=== PATIENT | male | born 1940 | race Caucasian/White ===

== ENCOUNTER → 2017-09-17 | Outpatient (CLI) | payer MEDICARE ==
[~2017-09-17] MED LIST: ALLO100T PO; ASPI-146 PO; BUSP10TA PO; CELE200C PO; COMMODE 3-IN-11 MIS; ENOX40IN SQ; ESOM1CAP16 PO; EZET10 PO; FOLI800T PO; GABA300C5 PO; HYDR-3580 PO; METH0.4I2 IM; METO25TA3 PO; SULF500T3 PO; TEMA30CA PO; TRAM50TA PO; WALKER WHEELS/F1 MIS
[2017-09-17 10:07] LABS: BASOPHIL # 0.2 TH/MM3 (0-0.2); BASOPHIL % 2.5 % (0.0-2.0); EOSINOPHIL # 0.3 TH/MM3 (0-0.4); EOSINOPHIL % 4.8 % (0.0-4.0); HEMATOCRIT 45.9 % (39.0-51.0); HEMO FLAGS DIFF FINAL; LYMPH % 20.1 % (9.0-44.0); LYMPHOCYTE # 1.3 TH/MM3 (1.0-4.8); MEAN CELL VOLUME 97.7 FL (80.0-100.0); MEAN CORPUSCULAR HEMOGLOBIN 32.6 PG (27.0-34.0); MEAN CORPUSCULAR HGB CONC 33.3 % (32.0-36.0); MONO % 12.2 % (0.0-8.0); NEUT % 60.4 % (16.0-70.0); PLATELET COUNT 265 TH/MM3 (150-450); RED CELL DISTRIBUTION WIDTH 14.8 % (11.6-17.2); WHITE BLOOD COUNT 6.7 TH/MM3 (4.0-11.0)
--- NOTE | 2017-09-17 10:11 | RADRPT ---
EXAM DATE/TIME: 09/17/2017 09:55 [facility] COMPARISON: CHEST PA & LAT, November 20, 2015, 6:21. INDICATIONS : Evaluate for pneumonia, pneumothorax, and communicable disease. Pre-op for left hip total arthroplas ty. MEDICAL HISTORY : Hypertension. SURGICAL HISTORY : Fusion, cervical. Right hip total arthroplasty. ENCOUNTER: Initial ACUITY: 1 day PAIN SCORE: 0/10 LOCATION: chest FINDINGS: PA and lateral views of the chest demonstrate the lungs to be symmetrically aerated without evidence of mass, infiltrate or effusion. Moderate size hiatal hernia. Heart borderline enlarged. Osseous str uctures are intact. CONCLUSION: No acute disease. Hiatal hernia. Cj Lopez MD on September 17, 2017 at 10:04 Board Certified Radiologist. This report was verified electronically.
[2017-09-17 10:18] LABS: APTT (PATIENT) 30.5 SEC (24.3-30.1); PROTHROMBIN TIME - PATIENT 11.3 SEC (9.8-11.6)
[2017-09-17 10:22] LABS: BLOOD, URINE NEG (NEG); COMMENT (UR) CULT NOT INDICATED; CULTURE IF INDICATED CULT NOT INDICATED; GLUCOSE,URINE NEG (NEG); KETONE, URINE NEG (NEG); MUCUS URINE FEW /lpf (OCC); NITRITE,URINE NEG (NEG); PH, URINE 6.5 (5.0-8.5); SQUAMOUS EPITHELIAL CELL URINE 1 /hpf (0-5); URINE COLOR YELLOW (YELLW/STRAW)
[2017-09-17 10:33] LABS: ANION GAP 7 MEQ/L (5-15); AST (GOT) 15 U/L (15-37); BLOOD UREA NITROGEN 14 MG/DL (7-18); CHLORIDE 101 MEQ/L (98-107); GLOMERULAR FILTRATION RATE 59 ML/MIN (>89); GLUCOSE,FASTING 80 MG/DL (74-99); POTASSIUM 4.6 MEQ/L (3.5-5.1); SODIUM (NA) 138 MEQ/L (136-145)
[2017-09-17 10:34] LABS: WESTERGREN SEDIMENTATION RATE 36 mm/hr (0-20)
[2017-09-17 10:36] LABS: ALKALINE PHOSPHATASE 126 U/L (45-117); ALT (GPT) 21 U/L (12-78); TOTAL BILIRUBIN ADULT 0.4 MG/DL (0.2-1.0)
--- NOTE | 2017-09-17 11:33 | EKG ---
Date Performed: 09/17/2017 Time Performed: 09:26:04 PTAGE: 77 years EKG: SINUS BRADYCARDIA LEFT AXIS DEVIATION ABNORMAL ECG NO PREVIOUS TRACING DOCTOR: Richie Grover Interpretating Date/Time 09/17/2017 11:32:37
== END ==
LOC: CPRE 09:04
PROVIDERS: ATTEND Orthopaedic Surgery
DX: Z01.810 Encounter for preprocedural cardiovascular examination (principal); Z01.811 Encounter for preprocedural respiratory examination; Z01.812 Encounter for preprocedural laboratory examination; Z96.60 Presence of unspecified orthopedic joint implant; M79.609 Pain in unspecified limb; M25.50 Pain in unspecified joint; R94.31 Abnormal electrocardiogram [ECG] [EKG]
CPT/HCPCS: 36415; 71020; 80053; 81001; 85025; 85610; 85652; 85730; 93005

== ENCOUNTER 2017-10-03 07:13 | Inpatient (IN) | payer MEDICARE ==
[~2017-10-03] VITALS: Ht 170.2 cm; Wt 96.2 kg
[~2017-10-03 07:13] MED LIST changes: -ALLO100T PO; -ASPI-146 PO; -COMMODE 3-IN-11 MIS; -ENOX40IN SQ; -HYDR-3580 PO; -SULF500T3 PO; -WALKER WHEELS/F1 MIS
[2017-10-03] MEDS ORDERED: CHLORHEXIDINE GLUCONATE 2 % 1 PACK (2 CLOTHS) TOPICAL PRN (08:15)
[2017-10-03] MEDS ORDERED: METOPROLOL TARTRATE 25 MG TAB PO PRN (08:15)
[2017-10-03] MEDS ORDERED: SODIUM CHLORID 0.9% 500 ML IV PRN (08:15)
[2017-10-03] MEDS ORDERED: LACTATED RINGER'S 1000 ML IV PRN (08:15)
[2017-10-03] MEDS ORDERED: POVIDONE IODINE 5% (ANTISEPSIS KIT) 4 APPLICATIONS EACH NARE PRN (08:15)
[2017-10-03] MEDS ORDERED: VANCOMYCIN 1000 MG/NS 250 ML (for <70 kg) IV SCH ×2 (08:30)
[2017-10-03] MEDS ORDERED: POVIDONE IODINE 7.5% SCRUB 118 ML BOTTLE TOPICAL SCH (08:30)
[2017-10-03] MEDS ORDERED: ceFAZolin 2 GM PREMIX 50 ML IV SCH (08:30)
[2017-10-03] MEDS ORDERED: DEXAMETHASONE SOD PHOS 20 MG/5 ML VIAL IV PUSH SCH (08:30)
[2017-10-03] MEDS ORDERED: GENTAMICIN SULFATE 80 MG/2 ML VIAL ONE (09:01)
[2017-10-03] MEDS ORDERED: APREPITANT 40 MG CAP ONE (09:12)
[2017-10-03] MEDS ORDERED: ACETAMINOPHEN 1000 MG/100 ML 100 ML IV ONE (09:17)
[2017-10-03] MEDS ORDERED: FAMOTIDINE 20 MG/2 ML VIAL ONE (09:17)
[2017-10-03] MEDS ORDERED: EXPAREL PERI-ARTICULAR INJECTION (TOTAL VOL. 60 ML) P-ARTICULR SCH ×2 (10:00)
[2017-10-03] MEDS ORDERED: TRANEXAMIC ACID INJ 890 MG in SODIUM CHLORIDE 0.9% INJ 100 ML IV SCH ×2 (10:00→12:15)
[2017-10-03] MEDS ORDERED: TEMAZEPAM 15 MG CAP PO PRN (11:15)
--- NOTE | 2017-10-03 11:19 | PD.OP ---
cc: Gregory Snyder MD Operative Report Date of Surgery: Oct 03, 2017 Preoperative Diagnosis: Left hip severe osteoarthritis Postoperative Diagnosis: Same Procedure: Left total hip arthroplasty Anesthesia: Gen. Surgeon: Gregory Snyder Extension Work Director(s): LUNA Reed The surgical procedure was assisted by my Advanced Registered Nurse Practitioner. My FINAL TESTER presence was necessary throughout this case for the manipulation and positioning of the surgical extremity. My FINAL TESTER was assisting me throughout the duration of this procedure. The skill set of an Advance Registered Nurse Practitioner was medically necessary to complete this procedure. During the surgical case, the surgical garment assembly supervisor was working at the back table and the Advance Registered Nurse Practitioner was directly assisting me. Operation and Findings: IMPLANT DESCRIPTION: 1. [place] Gription Cup, acetabular size 58. 2. [place] AltrX polyethylene, neutral. 4. [place] femoral stem size 13, no collar, standard offset. 5. Femoral head/neck ceramic, 36, +5. ESTIMATED BLOOD LOSS: 250 cc. JUSTIFICATION FOR PROCEDURE: The patient has end-stage osteoarthritis to the hip. There is an attached conservative measures pathway form in the chart that describes the nonoperative measures that were undertaken prior to consideration of surgical management. The patient understood the risks and benefits of surgical management. See my office notes for further details. PROCEDURE: The patient was brought back to the operative theatre. Adequate anesthesia was obtained. The patient received intravenous vancomycin and Ancef. The patient was carefully placed on the operative table. The lower extremity was prepped and draped in the usual sterile fashion. Fluoroscopic images were obtained. We made a standard anterior incision over the hip. We dissected through the TFL fascia, exposing the anterior capsule. Arthrotomy was performed in a T-shaped fashion. The capsule was tagged with a #2 FiberWire. End-stage arthritis was identified. Osteotomy was performed through the femoral neck exposing the acetabulum. Remnants of the labrum were resected and osteophytes were removed. We sequentially reamed the acetabulum. We trialed the hip and placed the final cup into position. This was done under fluoroscopic guidance to obtain the appropriate inclination and anteversion. A manhole cover was placed into the acetabular component. We then placed the final polyethylene into position and confirmed that it was well seated. Capsular attachments on the calcar and the inner aspect of the greater trochanter were resected. On the proximal aspect of the femur we used a rongeur , box osteotome, canal finder, sequential broaches and lateralizing rasp. We calcar planed the proximal femur. Then thoroughly irrigated the wound. We trialed the hip with the appropriate size stem. We placed the final stem in to position and trialed again. The hip was stable while it was externally rotated 70 degrees when the leg was lowered to the floor. The final head was applied, and final fluoroscopic images were obtained. The wound was thoroughly irrigated again. Interarticular injection of liposomal bupivacaine was given. The capsule was closed with #2 FiberWire and #1 Vicryl. The deep fascia was closed with a #2 Stratafix, followed by 2-0 Vicryl in the skin and Dermabond dressing. Postop plan is to weight-bear as tolerated. DVT prophylaxis will be performed with Angelica, BASIL koenig, early mobilization, and Lovenox followed by aspirin. Gregory Snyder MD Oct 03, 2017 11:19
[2017-10-03] MEDS ORDERED: ASPI-146 PO (11:21)
[2017-10-03] MEDS ORDERED: ENOX40IN SQ (11:21)
[2017-10-03] MEDS ORDERED: HYDR-3580 PO (11:21)
--- NOTE | 2017-10-03 11:28 | RADRPT ---
EXAM DATE/TIME: 10/03/2017 10:07 [facility] COMPARISON: No previous studies available for comparison. INDICATIONS : Left hip anterior replacement done in operating room. MEDICAL HISTORY : None. SURGICAL HISTORY : None. ENCOUNTER: Initial ACUITY: 1 day PAIN SCORE: Non-responsive. LOCATION: Left hip. FINDINGS: 2 magnified C. arm spot views are centered over the hip and labeled left. A total hip prosthesis is i n good position. No fracture seen on these images. CONCLUSION: Total hip prosthesis in good position. Shaheen Cervantes Jr., MD on October 03, 2017 at 11:08 Board Certified Radiologist. This report was verified electronically.
[2017-10-03] MEDS ORDERED: BISACODYL 10 MG SUPP RECTAL PRN (11:30)
[2017-10-03] MEDS ORDERED: ACETAMINOPHEN/HYDROcodone 325 MG/7.5 MG TAB PO PRN (11:30)
[2017-10-03] MEDS ORDERED: MORPHINE SULFATE 4 MG/ML INJ IV PUSH PRN (11:30)
[2017-10-03] MEDS ORDERED: Post-op Orders (for Pharmacy) MISC XX ONE (11:30)
[2017-10-03] MEDS ORDERED: ONDANSETRON HCL 4 MG/2 ML VIAL IVP PRN (11:30)
[2017-10-03] MEDS ORDERED: diphenhydrAMINE HCL 50 MG/ML VIAL IV PUSH PRN (11:30)
[2017-10-03] MEDS ORDERED: NALOXONE HCL 0.4 MG/ML AMP IV PUSH PRN (11:30)
[2017-10-03] MEDS ORDERED: SODIUM CHLORIDE 0.9% FLUSH 5 ML FLUSH IVF PRN (11:30)
[2017-10-03] MEDS ORDERED: MAGNESIUM HYDROXIDE SUSP 30 ML CUP PO PRN (11:30)
[2017-10-03] MEDS ORDERED: ALUMINUM/MAGNESIUM/SIMETH 30 ML CUP PO PRN (11:30)
[2017-10-03] MEDS ORDERED: DO NOT ADM ANY ANTICOAGULANT DRUGS PRN (11:33)
[2017-10-03] MEDS ORDERED: *morphine SULFATE 8 MG/ML PERIprocedure ONLY ONE ×3 (11:51→12:08)
[2017-10-03] MEDS: SODIUM CHLOR 0.9% 1000 ML INJ 1,000 ML IV SCH ×2 (12:34→21:16)
--- NOTE | 2017-10-03 13:11 | RADRPT ---
EXAM DATE/TIME: 10/03/2017 12:28 [facility] COMPARISON: SPINE LUMBAR LATERAL ONLY, July 18, 2016, 7:55. INDICATIONS : Post op left total hip. MEDICAL HISTORY : None. SURGICAL HISTORY : None. ENCOUNTER: Subsequent ACUITY: 1 day PAIN SCORE: 7/10 LOCATION: Left Hip FINDINGS: There are bilateral bipolar hip prostheses in place. These appear well placed. CONCLUSION: Both bipolar hip prostheses appear well placed. Gopi Elmore MD on October 03, 2017 at 13:03 Board Certified Radiologist. This report was verified electronically.
--- NOTE | 2017-10-03 13:19 | PD.CONS ---
HPI Service [facility] Consult Requested By Reason for Consult Medical management Primary Care Physician Faheem Khalil M.D. Diagnoses: (1) GERD (gastroesophageal reflux disease) (2) Hypertension (3) BPH (benign prostatic hyperplasia) (4) History of CVA (cerebrovascular accident) (5) Psoriatic arthritis (6) Impaired mobility and activities of daily living History of Present Illness Very pleasant 77-year-old male with past medical history of psoriatic arthritis , chronic back pain with multiple surgeries, hypertension who presented for surgery of his left kip by Dr. Snyder. The patient was seen in PACU. He appears in not acute distress at this time. He denies any chest pain or shortness of breath. No nausea or vomiting no diarrhea or constipation. No lightheadedness. Review of Systems Except as stated in HPI: all other systems reviewed are Neg Past Family Social History Allergies: Coded Allergies: No Known Allergies (Verified Allergy, Unknown, 10/03/17) Past Medical History Hypertension, depression/anxiety, psoriatic arthritis, back pain with multiple back surgeries Past Surgical History Multiple spinal surgeries Hand surgery Right foot surgery Reported Medications Reported Meds & Active Scripts Active Enoxaparin Inj (Enoxaparin Sodium) 40 Mg/0.4 Ml Syr 40 Mg SQ DAILY Start Aspirin after Lovenox is completed. Ecotrin Regular Strength (Aspirin) 325 Mg Tabdr 325 Mg PO DAILY Start Aspirin after Lovenox is completed. Hydrocodone-Acetaminophen 7.5 Mg-325 Mg Tab 1-2 Tab PO Q4H PRN Reported Gabapentin 300 Mg Cap 300 Mg PO BID Celebrex (Celecoxib) 200 Mg Cap 200 Mg PO BID Folic Acid 800 Mcg Tab 1 Mg PO 4XWEEK Tramadol (Tramadol HCl) 50 Mg Tab 50 Mg PO Q8H PRN Temazepam 30 Mg Cap 30 Mg PO HS PRN Metoprolol Tartrate 25 Mg Tab 12.5 Mg PO DAILY Otrexup Inj (Methotrexate Inj) 20 Mg/0.4 Ml Inj 0.7 Ml IM WEEKLY Zetia (Ezetimibe) 10 Mg Tab 5 Mg PO DAILY Esomeprazole DR 40 Mg Capdr 40 Mg PO DAILY Buspirone (Buspirone HCl) 10 Mg Tab 10 Mg PO BID Family History Father heart failure Mother healthy at 102 Social History Quit smoking 4 years ago, used to smoke a pack per day since early age Denies alcohol use or illicit drug use. Physical Exam Vital Signs Vital Signs Date Time Temp Pulse Resp B/P (MAP) Pulse Ox O2 Delivery O2 Flow Rate FiO2 10/03/17 08:37 98.1 72 20 141/85 (103) 95 Physical Exam GENERAL: This is a well-nourished, well-developed patient, in no apparent distress. SKIN: No rashes, ecchymoses or lesions. Cool and dry. HEAD: Atraumatic. Normocephalic. No temporal or scalp tenderness. EYES: Pupils equal round and reactive. Extraocular motions intact. No scleral icterus. No injection or drainage. ENT: Nose without bleeding, purulent drainage or septal hematoma. Throat without erythema, tonsillar hypertrophy or exudate. Uvula midline. Airway patent. NECK: Trachea midline. No JVD or lymphadenopathy. Supple, nontender, no meningeal signs. CARDIOVASCULAR: Regular rate and rhythm without murmurs, gallops, or rubs. RESPIRATORY: Clear to auscultation. Breath sounds equal bilaterally. No wheezes , rales, or rhonchi. GASTROINTESTINAL: Abdomen soft, non-tender, nondistended. No hepato-splenomegaly , or palpable masses. No guarding. MUSCULOSKELETAL: Extremities without clubbing, cyanosis, or edema. No joint tenderness, effusion, or edema noted. No calf tenderness. Negative Homans sign bilaterally. NEUROLOGICAL: Awake and alert. Cranial nerves II through XII intact. Motor and sensory grossly within normal limits. Five out of 5 muscle strength in all muscle groups. Normal speech. Imaging Last Impressions Hip and Pelvis X-Ray 10/03/17 1116 Signed Impressions: Service Date/Time: Tuesday, October 03, 2017 12:28 - CONCLUSION: Both bipolar hip prostheses appear well placed. Gopi Elmore MD Hip X-Ray 10/03/17 0000 Signed Impressions: Service Date/Time: Tuesday, October 03, 2017 10:07 - CONCLUSION: Total hip prosthesis in good position. Shaheen Cervantes Jr., MD Assessment and Plan Assessment and Plan Left hip severe osteoarthritis s/p Left total hip arthroplasty by Dr Claudio kay on 10/03/17 management per ortho HTN blood pressure appears stable at this time. Restart home medications. Monitor vital signs. Adjustments medications as need Depression /anxiety stable at this time. Resume home medications RA on methotrexate. Stable at this time. Methotrexate to be resumed when cleared by orthopedic doctor. DVT Prophylaxis per Ortho Thank you for this consultation we'll follow along. Discussed Condition With Patient, nurse Sinai Villa MD Oct 03, 2017 13:19
[2017-10-03 15:00] VITALS: BP 121/72; PULSE 87; RESP 16; TEMP 96.2; O2SAT 95
[2017-10-03] MEDS: ACETAMINOPHEN/HYDROcodone 325 MG/7.5 MG TAB PO PRN ×2 (15:47→23:51)
[2017-10-03 16:50] VITALS: BP 89/75; PULSE 101; O2SAT 93
--- NOTE | 2017-10-03 17:04 | HHI.DCPOC ---
Discharge Care Plan Diagnosis: (1) Osteoarthritis of left hip (2) Status post total hip replacement, left Your Health Problems Are: Difficulty with ADL Goals to Promote Your Health * To prevent worsening of your condition and complications * To maintain your health at the optimal level Directions to Meet Your Goals Take your medications as prescribed Follow your dietary instruction Follow activity as directed Keep your appointments as scheduled Take your immunizations and boosters as scheduled If your symptoms worsen call your PCP, if no PCP go to Urgent Care Center or Emergency Room Smoking is Dangerous to Your Health. Avoid second hand smoke Call the 24-hour hour crisis hotline for domestic abuse at Moy Sanchez Oct 03, 2017 17:04
--- NOTE | 2017-10-03 17:04 | HHI.FF ---
Face to Face Verification Diagnosis: (1) Osteoarthritis of left hip (2) Status post total hip replacement, left Physical Therapy Gait training, Transfer training, bed to chair Hip: Total hip Left LE Weight Bearing: WB as tolerated Left LE Range of Motion: Active ROM Nursing Nursing: William keller Dressing Changes: Do not change dressing Additional Instructions first dressing change will be in the office I have seen patient Francisco Carter on 10/03/17. My clinical findings support the need for the requested home health care services because: Limited ability to care for self High risk of falls I certify that my clinical findings support that this patient is homebound because: Post-op weakness Unsteady gait/balance Moy Sanchez Oct 03, 2017 17:04
[2017-10-03] MEDS ORDERED: WALKER WHEELS/F1 MIS (17:06)
[2017-10-03] MEDS ORDERED: COMMODE 3-IN-11 MIS (17:06)
--- NOTE | 2017-10-03 17:09 | PD.ORT.PN ---
Objective Vitals Vital Signs Date Time Temp Pulse Resp B/P (MAP) Pulse Ox O2 Delivery O2 Flow Rate FiO2 10/03/17 16:50 101 89/75 (80) 93 10/03/17 14:50 97.4 78 15 128/62 (84) 98 Nasal Cannula 2 10/03/17 14:15 78 17 132/60 (84) 98 Nasal Cannula 2 10/03/17 13:45 78 17 138/62 (87) 98 Nasal Cannula 2 10/03/17 13:15 73 15 116/58 (77) 97 Nasal Cannula 2 10/03/17 12:45 71 16 136/63 (87) 97 Nasal Cannula 2 10/03/17 12:30 72 16 145/70 (95) 96 Nasal Cannula 2 10/03/17 12:15 71 16 139/65 (89) 96 Nasal Cannula 2 10/03/17 12:00 72 16 157/67 (97) 98 Nasal Cannula 3 10/03/17 11:45 79 15 159/86 (110) 100 Nasal Cannula 3 10/03/17 11:35 97.8 78 15 145/69 (94) 100 Nasal Cannula 3 10/03/17 08:37 98.1 72 20 141/85 (103) 95 I/O 10/02/17 10/02/17 10/02/17 10/03/17 10/03/17 10/03/17 07:00 15:00 23:00 07:00 15:00 23:00 Intake Total 1400 ml Output Total 150 ml Balance 1250 ml Intake IV Total 100 ml Other 1300 ml Output Urine Total 0 ml Estimated Blood Loss 150 ml Imaging Last 24 hours Impressions Hip and Pelvis X-Ray 10/03/17 1116 Signed Impressions: Service Date/Time: Tuesday, October 03, 2017 12:28 - CONCLUSION: Both bipolar hip prostheses appear well placed. Gopi Elmore MD Hip X-Ray 10/03/17 0000 Signed Impressions: Service Date/Time: Tuesday, October 03, 2017 10:07 - CONCLUSION: Total hip prosthesis in good position. Shaheen Cervantes Jr., MD Assessment & Plan Assessment and Plan POD #0: Left KM 1. WBAT LLE 2. Lovenox followed by ASA for DVT prophylaxis 3. Ice to the left hip PRN 4. No dressing changes. First dressing change will be in the office. 5. Plan is for discharge home with home health on 6. Patient will f/u with Dr. Snyder or LUNA Huizar as previously scheduled. Moy Sanchez Oct 03, 2017 17:09
[2017-10-03 20:27] VITALS: BP 137/72; PULSE 98; RESP 18; TEMP 97.8; O2SAT 95
[2017-10-03] MEDS: SODIUM CHLORIDE 0.9% FLUSH 5 ML FLUSH IVF SCH (21:00)
[2017-10-03] MEDS: busPIRone HCL 10 MG TAB PO SCH (23:38)
[2017-10-03] MEDS: GABAPENTIN 300 MG CAP PO SCH (23:38)
[2017-10-04 00:25] VITALS: BP 92/63; PULSE 99; RESP 18; TEMP 97.6; O2SAT 95
[2017-10-04 04:21] VITALS: BP 101/60; PULSE 95; RESP 18; TEMP 97; O2SAT 95
[2017-10-04] MEDS: ACETAMINOPHEN/HYDROcodone 325 MG/7.5 MG TAB PO PRN (05:09)
[2017-10-04 06:15] LABS: HEMATOCRIT 39.1 % (39.0-51.0); MEAN CELL VOLUME 96.6 FL (80.0-100.0); MEAN CORPUSCULAR HEMOGLOBIN 32.3 PG (27.0-34.0); MEAN CORPUSCULAR HGB CONC 33.5 % (32.0-36.0); PLATELET COUNT 216 TH/MM3 (150-450); RED BLOOD COUNT 4.05 MIL/MM3 (4.50-5.90); RED CELL DISTRIBUTION WIDTH 14.3 % (11.6-17.2); REVIEW FLAG FINAL; WHITE BLOOD COUNT 13.2 TH/MM3 (4.0-11.0)
[2017-10-04] MEDS: SODIUM CHLOR 0.9% 1000 ML INJ 1,000 ML IV SCH (07:16)
[2017-10-04] MEDS ORDERED: DEXAMETHASONE SOD PHOS 20 MG/5 ML VIAL IV ONE (07:45)
[2017-10-04 07:52] VITALS: BP 131/62; PULSE 89; RESP 18; TEMP 97.3; O2SAT 93
--- NOTE | 2017-10-04 08:29 | HHI.PR ---
Objective Vitals Vital Signs Date Time Temp Pulse Resp B/P (MAP) Pulse Ox O2 Delivery O2 Flow Rate FiO2 10/04/17 04:21 97.0 95 18 101/60 (74) 95 10/04/17 00:25 97.6 99 18 92/63 (73) 95 10/03/17 20:27 97.8 98 18 137/72 (93) 95 10/03/17 16:50 101 89/75 (80) 93 10/03/17 15:00 96.2 87 16 121/72 (88) 95 10/03/17 14:50 97.4 78 15 128/62 (84) 98 Nasal Cannula 2 10/03/17 14:15 78 17 132/60 (84) 98 Nasal Cannula 2 10/03/17 13:45 78 17 138/62 (87) 98 Nasal Cannula 2 10/03/17 13:15 73 15 116/58 (77) 97 Nasal Cannula 2 10/03/17 12:45 71 16 136/63 (87) 97 Nasal Cannula 2 10/03/17 12:30 72 16 145/70 (95) 96 Nasal Cannula 2 10/03/17 12:15 71 16 139/65 (89) 96 Nasal Cannula 2 10/03/17 12:00 72 16 157/67 (97) 98 Nasal Cannula 3 10/03/17 11:45 79 15 159/86 (110) 100 Nasal Cannula 3 10/03/17 11:35 97.8 78 15 145/69 (94) 100 Nasal Cannula 3 10/03/17 08:37 98.1 72 20 141/85 (103) 95 I/O 10/03/17 10/03/17 10/03/17 10/04/17 10/04/17 10/04/17 07:00 15:00 23:00 07:00 15:00 23:00 Intake Total 1400 ml 240 ml 480 ml Output Total 150 ml 500 ml 1400 ml Balance 1250 ml -260 ml -920 ml Intake Oral 240 ml 480 ml IV Total 100 ml Other 1300 ml Output Urine Total 0 ml 500 ml 1400 ml Estimated Blood Loss 150 ml # Bowel Movements 0 0 Result Diagram: 10/04/17 0545 Imaging Last Impressions Hip and Pelvis X-Ray 10/03/17 1116 Signed Impressions: Service Date/Time: Tuesday, October 03, 2017 12:28 - CONCLUSION: Both bipolar hip prostheses appear well placed. Gopi Elmore MD Hip X-Ray 10/03/17 0000 Signed Impressions: Service Date/Time: Tuesday, October 03, 2017 10:07 - CONCLUSION: Total hip prosthesis in good position. Shaheen Cervantes Jr., MD Objective Remarks GENERAL: This is a well-nourished, well-developed patient, in no apparent distress. CARDIOVASCULAR: Regular rate and rhythm without murmurs, gallops, or rubs. RESPIRATORY: Clear to auscultation. Breath sounds equal bilaterally. No wheezes , rales, or rhonchi. GASTROINTESTINAL: Abdomen soft, non-tender, nondistended. No hepato-splenomegaly , or palpable masses. No guarding. MUSCULOSKELETAL: S/P left hip surgery, dressing c/d/i. Extremities without clubbing, cyanosis, or edema. No joint tenderness, effusion, or edema noted. No calf tenderness. Negative Homans sign bilaterally. NEUROLOGICAL: Awake and alert. Cranial nerves II through XII intact. Motor and sensory grossly within normal limits. Five out of 5 muscle strength in all muscle groups. Normal speech. A/P Problem List: (1) GERD (gastroesophageal reflux disease) ICD Code: K21.9 - Gastro-esophageal reflux disease without esophagitis Status: Chronic (2) Hypertension ICD Code: I10 - Essential (primary) hypertension Status: Chronic (3) BPH (benign prostatic hyperplasia) ICD Code: N40.0 - Enlarged prostate without lower urinary tract symptoms Status: Chronic (4) History of CVA (cerebrovascular accident) ICD Code: Z86.73 - Personal history of transient ischemic attack (TIA), and cerebral infarction without residual deficits Status: Acute (5) Psoriatic arthritis ICD Code: L40.50 - Arthropathic psoriasis, unspecified Status: Chronic (6) Impaired mobility and activities of daily living ICD Code: Z74.09 - Other reduced mobility Status: Acute Assessment and Plan Left hip severe osteoarthritis s/p Left total hip arthroplasty by Dr Claudio kay on 10/03/17 management per ortho Mild leukocytosis postsurgical, likely reactive. No signs of infection. HTN blood pressure appears stable at this time. Restart home medications. Monitor vital signs. Adjustments medications as need Depression /anxiety stable at this time. Resume home medications RA on methotrexate. Stable at this time. Methotrexate to be resumed when cleared by orthopedic doctor. DVT Prophylaxis per Ortho Thank you for this consultation we'll follow along. Discussed Condition With Patient, nurse Appears stable medically. Sinai Villa MD Oct 04, 2017 08:29
[2017-10-04] MEDS: GABAPENTIN 300 MG CAP PO SCH (08:34)
[2017-10-04] MEDS: SODIUM CHLORIDE 0.9% FLUSH 5 ML FLUSH IVF SCH (08:36)
[2017-10-04 08:45] VITALS: O2SAT 98
[2017-10-04] MEDS ORDERED: EZETIMIBE 10 MG TAB PO SCH (09:00)
[2017-10-04] MEDS ORDERED: METOPROLOL TARTRATE 25 MG TAB PO SCH (09:00)
[2017-10-04] MEDS ORDERED: PANTOPRAZOLE SOD 40 MG DELAYED RELEASE TAB PO SCH (09:00)
[2017-10-04] MEDS: busPIRone HCL 10 MG TAB PO SCH (10:05)
--- NOTE | 2017-10-04 10:15 | PD.ORT.PN ---
Subjective Subjective Remarks no CP/SOB. no issues. Participating in PT Objective Vitals Vital Signs Date Time Temp Pulse Resp B/P (MAP) Pulse Ox O2 Delivery O2 Flow Rate FiO2 10/04/17 07:52 97.3 89 18 131/62 (85) 93 10/04/17 04:21 97.0 95 18 101/60 (74) 95 10/04/17 00:25 97.6 99 18 92/63 (73) 95 10/03/17 20:27 97.8 98 18 137/72 (93) 95 10/03/17 16:50 101 89/75 (80) 93 10/03/17 15:00 96.2 87 16 121/72 (88) 95 10/03/17 14:50 97.4 78 15 128/62 (84) 98 Nasal Cannula 2 10/03/17 14:15 78 17 132/60 (84) 98 Nasal Cannula 2 10/03/17 13:45 78 17 138/62 (87) 98 Nasal Cannula 2 10/03/17 13:15 73 15 116/58 (77) 97 Nasal Cannula 2 10/03/17 12:45 71 16 136/63 (87) 97 Nasal Cannula 2 10/03/17 12:30 72 16 145/70 (95) 96 Nasal Cannula 2 10/03/17 12:15 71 16 139/65 (89) 96 Nasal Cannula 2 10/03/17 12:00 72 16 157/67 (97) 98 Nasal Cannula 3 10/03/17 11:45 79 15 159/86 (110) 100 Nasal Cannula 3 10/03/17 11:35 97.8 78 15 145/69 (94) 100 Nasal Cannula 3 I/O 10/03/17 10/03/17 10/03/17 10/04/17 10/04/17 10/04/17 07:00 15:00 23:00 07:00 15:00 23:00 Intake Total 1400 ml 240 ml 480 ml Output Total 150 ml 500 ml 1400 ml Balance 1250 ml -260 ml -920 ml Intake Oral 240 ml 480 ml IV Total 100 ml Other 1300 ml Output Urine Total 0 ml 500 ml 1400 ml Estimated Blood Loss 150 ml # Bowel Movements 0 0 Result Diagram: 10/04/17 0545 Imaging Last 24 hours Impressions Hip and Pelvis X-Ray 10/03/17 1116 Signed Impressions: Service Date/Time: Tuesday, October 03, 2017 12:28 - CONCLUSION: Both bipolar hip prostheses appear well placed. Gopi Elmore MD Hip X-Ray 10/03/17 0000 Signed Impressions: Service Date/Time: Tuesday, October 03, 2017 10:07 - CONCLUSION: Total hip prosthesis in good position. Shaheen Cervantes Jr., MD Objective Remarks aaox3. NAD normal respiratory efforts LLE nvi, dressing CDI, SILT distally, soft compartments, neg homans Assessment & Plan Assessment and Plan POD #1: Left KM 1. WBAT LLE 2. Lovenox followed by ASA for DVT prophylaxis 3. Ice to the left hip PRN 4. No dressing changes. First dressing change will be in the office. 5. Plan is for discharge home with home health today 6. Patient will f/u with Dr. Snyder or LUNA Huizar as previously scheduled. Bernardo Bullard Jr., MD Oct 04, 2017 10:15
[2017-10-04] MEDS ORDERED: ENOXAPARIN SODIUM 40 MG/0.4 ML SYRINGE SQ SCH (11:00)
[2017-10-04] MEDS ORDERED: MULTIVITAMINS/MINERALS THERAPEUTIC TAB PO SCH (21:00)
[2017-10-04] MEDS ORDERED: DOCUSATE SODIUM 100 MG CAP PO SCH (21:00)
--- NOTE | 2017-10-07 15:19 | HHI.DS ---
Discharge Summary Admission Date Oct 03, 2017 at 07:13 Discharge Date: Oct 04, 2017 Admitting Diagnosis OA left hip Status post total hip replacement, left Diagnosis: (1) Osteoarthritis of left hip Diagnosis: Principal ICD Codes: M16.12 - Unilateral primary osteoarthritis, left hip (2) Status post total hip replacement, left Diagnosis: Principal ICD Codes: Z96.642 - Presence of left artificial hip joint Brief History This is a 77 year old male patient with severe OA of the left hip CBC/BMP: 10/04/17 0545 PE at Discharge aaox3. NAD normal respiratory efforts LLE nvi, dressing CDI, SILT distally, soft compartments, neg [facility] Hospital Course The patient was admitted to the hospital for severe OA of the left hip to have a left KM. The patient's surgery went well without complication. The patient is WBAT on the left LE. The patient was placed on Lovenox followed by ASA for DVT prophylaxis. The patient is on a regular diet. The patient was discharged home with home health and will f/u in the office with Dr. Snyder or LUNA Huizar as previously scheduled. Pt Condition on Discharge: Stable Discharge Disposition: Disch w/ Home Health Serv Discharge Instructions Diet Instructions: As Tolerated, No Restrictions Activities You Can Perform: Weight Bearing as Aleksandar Activities to Avoid: Strenuous Activity Follow up Referrals: Orthopedics with Gregory Snyder MD New Medications: Aspirin (Ecotrin Regular Strength) 325 Mg Tabdr 325 MG PO DAILY, #30 TAB 0 Refills Start Aspirin after Lovenox is completed. Commode 3-in-1 (Commode 3-in-1) 1 Mis Mis EA .ROUTE DIRECTED, #1 0 Refills Enoxaparin Inj (Enoxaparin Inj) 40 Mg/0.4 Ml Syr 40 MG SQ DAILY for Blood Clot Prevention, #10 SYRINGE 0 Refills Start Aspirin after Lovenox is completed. Hydrocodone-Acetaminophen (Hydrocodone-Acetaminophen) 7.5 Mg-325 Mg Tab 1-2 TAB PO Q4H PRN for PAIN, #60 TAB 0 Refills Walker with Front Wheels (Walker with Front Wheels) 1 Mis Mis EA .ROUTE DIRECTED, #1 0 Refills Continued Medications: Buspirone (Buspirone) 10 Mg Tab 10 MG PO BID for Anxiety, TAB [address] (Esomeprazole DR) 40 Mg Capdr 40 MG PO DAILY for Heartburn Management, #30 CAP 0 Refills Ezetimibe (Zetia) 10 Mg Tab 5 MG PO DAILY for Cholesterol Management, #30 TAB 0 Refills Folic Acid (Folic Acid) 800 Mcg Tab 1 MG PO 4XWEEK for Nutritional Supplement, TAB 0 Refills Gabapentin (Gabapentin) 300 Mg Cap 300 MG PO BID, #60 CAP 0 Refills Metoprolol Tartrate (Metoprolol Tartrate) 25 Mg Tab 12.5 MG PO DAILY for Blood Pressure Management, #60 TAB 0 Refills Temazepam (Temazepam) 30 Mg Cap 30 MG PO HS PRN for INSOMNIA, #30 CAP 0 Refills Discontinued Medications: Celecoxib (Celebrex) 200 Mg Cap 200 MG PO BID for Pain Management, CAP 0 Refills Methotrexate Inj (Otrexup Inj) 20 Mg/0.4 Ml Inj 0.7 ML IM WEEKLY for ARTHRITIS Tramadol (Tramadol) 50 Mg Tab 50 MG PO Q8H PRN for PAIN, TAB 0 Refills Moy Sanchez Oct 07, 2017 15:19
== END 2017-10-04 11:15 | disposition home health service (06) | DRG 470 ==
LOC: HSDI 07:13 → N06B 15:11
PROVIDERS: ADMIT Orthopaedic Surgery; ATTEND Orthopaedic Surgery
PROC: 0SRB04A Replacement of Left Hip Joint with Ceramic on Polyethylene Synthetic Substitute, Uncemented, Open Approach (ICD-10-PCS; principal; 2017-10-03 09:30)
DX: M16.12 Unilateral primary osteoarthritis, left hip (principal); L40.50 Arthropathic psoriasis, unspecified; M06.9 Rheumatoid arthritis, unspecified; I10 Essential (primary) hypertension; K21.9 Gastro-esophageal reflux disease without esophagitis; N40.0 Benign prostatic hyperplasia without lower urinary tract symptoms; Z79.899 Other long term (current) drug therapy; Z86.73 Personal history of transient ischemic attack (TIA), and cerebral infarction without residual deficits; Z87.891 Personal history of nicotine dependence; M54.9 Dorsalgia, unspecified; G89.29 Other chronic pain; F41.8 Other specified anxiety disorders
CPT/HCPCS: 73502; 76000; 85027; 86850; 86900; 86901; 94150; C1776; C9290; J0131; J0690; J1100; J1580; J1650; J2270; J3370; J7030; J7050; J8501